=== PATIENT | female | born 1950 | race Caucasian/White ===

== ENCOUNTER → 2017-01-01 | Outpatient (CLI) | payer MEDICARE, OTHER ==
[~2017-01-01] MED LIST: ASPI81TA3 PO; ATOR40TA68 PO; BENA10TA48 PO; CIPR500T4 PO; INSU100I14 SC; LANT3I SC; METO-448 PO; OMEG-135 PO; PHEN-538 PO
--- NOTE | 2017-01-01 11:17 | RADRPT ---
PROCEDURE: Abdominal Ultrasound (right upper quadrant). CLINICAL INDICATION: Abdominal pain TECHNIQUE: Multiple real-time longitudinal and transverse images of the right upper quadrant of th e abdomen were acquired utilizing a curved array transducer. Images were reviewed on a high-resoluti on PACS workstation. COMPARISON: None FINDINGS: Liver is normal in echogenicity and size. No focal masses are identified. There is no evidence of intra or extrahepatic ductal dilatation. The common bile duct measures 4.8 mm in diameter. No gall stones or gallbladder wall thickening is seen. The visualized portions of the pancreas are unremarkable with obscuration of the tail of the pancrea s. No free fluid is identified. There is no evidence of right hydronephrosis or renal calcification. The right kidney measures 11.1 cm in length. The visualized portions of the aorta and inferior vena cava are within normal limits. IMPRESSION: 1. Unremarkable right upper quadrant ultrasound. RPTAT: KK .Raymond Larry MD, Date Time Electronically viewed and signed by .Raymond Larry MD, MD on 01/01/2017 11:16 .B/
== END | disposition home or self-care (01) ==
LOC: U/S 09:57 → GIL 09:59
PROVIDERS: ATTEND Internal Medicine
DX: R10.11 Right upper quadrant pain (principal)
CPT/HCPCS: 76705

== ENCOUNTER 2017-11-25 14:49 | Emergency (ER) | END 2017-11-25 20:40 | disposition short-term general hospital (02) ==